=== PATIENT | male | born 1990 | race Asian ===

== ENCOUNTER 2025-06-18 14:38 | Emergency (ER) | payer MEDICAID ==
[~2025-06-18] VITALS: Ht 167.6 cm; Wt 85.1 kg
[2025-06-18 14:46] VITALS: TEMP 97.5
--- NOTE | 2025-06-18 14:50 | Physician Documentation ---
History of Present Illness Stated Complaint: DIZZINESS OK to notify your PCP?: Yes Source: patient Mode of Arrival: POV Exam Limitations: no limitations HPI MSE: 34-year-old male that presents to the emergency department for evaluation of high blood pressure taken a couple of days ago dizziness and for medication refill. Patient reports that he is normally hypertensive. Patient reports that he is a methamphetamine user. Patient reports that he has not used methamphetamine today but unsure. Patient does not have any desire to abstain from methamphetamine he is only out of methamphetamine at this time. Patient's vital signs are currently stable. Provider note: This patient comes in complaining of I will let pressure second- degree to be an out in his lisinopril. He says 630 mg p.o. lisinopril daily. He is not complaining of chest pain or shortness of breath. He is also complaining of swelling of the right side of his face just in front in his ear with a extends into his lower jaw. He complains of mild discomfort but nothing significant. He denies pain in his teeth. He denies fevers or chills. He denies redness or warmth with the outer skin. Medication Reconciliation Allergies: Coded Allergies: No Known Allergies (Unverified , 06/18/25) Physical Exam General Appearance: alert, WD/WN, no apparent distress EENT The patient has obvious edema/fullness of the right side of his face. To palp ation of the preauricular area there is a well-circumscribed mass that extends to the submandibular area. No change in overlying skin color or temperature. No significant tenderness to palpation of the area. No obvious fluctuance or deep fluid collection. No obvious periapical abscess to inspection of the teeth with the right upper jaw. Neck: normal inspection, full range of motion, supple, non-tender Respiratory: lungs clear, normal breath sounds, no respiratory distress Cardiovascular No rubs, gallops or murmurs. No peripheral edema, cyanosis or clubbing of the extremities. Skin: normal color, warm/dry Lymphatic: no adenopathy Progress Results/Orders Reviewed/noted all lab results: Yes Medical Decision Making Additional information obtaine: N/A Findings Regarding the patient's blood pressure is not significantly elevated and he is not symptomatic. It isn't require attention here in the ER. I am going to prescribe that has a lisinopril with the instructions take it daily as directed. Regarding the swelling of the rest of the face it appears to be consistent with a parotitis. I will place him on a course of Augmentin with the instructions to apply warm compresses to the area and he has been suck on sour candies. Follow up with the primary care physician for recheck in the next one or two days and return to the ER for any worsening or concerning symptoms. Differential Dx:Considerations: Other (Hypertension. Medication refill. Facial edema. Parotitis. Periapical abscess.) Additional Comments Hypertension. Methamphetamine abuse. Facial edema. Facial cellulitis. Areas syphilis. Parotitis. Salivary stone. Departure Disposition: HOME / SELF CARE / HOMELESS Impression: Primary Impression: Hypertension Additional Impression: Parotitis Condition: Stable Discharge Instructions: Hypertension, Adult, Parotitis Additional Instructions: Regarding the swelling of the right side of your face I prescribed some antibiotics you can take in his suck on sour candies him in his described. Apply warm compresses and ibuprofen for pain. We are going to your high blood pressure take lisinopril as directed. Follow up with the primary care physician for recheck in the next one or two days and return to the ER for any worsening or concerning symptoms. Referrals: NO PRIMARY CARE PROVIDER (PCP) Prescriptions Lisinopril* (Lisinopril*) 40 Mg Tablet 1 TAB PO DAILY for 30 Days, #30 TAB 3 Refills Prov: BOB BARRIOS 06/18/25 Amox Tr/Potassium Clavulanate (Augmentin 875-125 Tablet) 1 Each Tablet 1 TAB PO Q12H for 10 Days, #20 TAB Prov: BOB BARRIOS 06/18/25 Signature Scribe Signature: No scribe Attestation: The note accurately reflects work and decisions made by me.Bob WHEATLEY 06/18/25 16:20 CARMEN ESCOBAR Jun 18, 2025 14:50 BOB BARRIOS Jun 18, 2025 16:16
--- NOTE | 2025-06-18 15:20 | ELECTROCARDIOGRAPH REPORT ---
[facility], [place] Test Date: 2025-06-18 Test Time: 15:19:26 Pat Name: MAR POSADAS Department: [facility]- Patient ID: [facility]-[id number] Room: Gender: M [employer]: : [id number] Requested By: CARMEN ESCOBAR Order Number: [id number] Reading MD: Dr. WILL Armenta Measurements Intervals [place] Rate: 106 P: 69 MD: 168 QRS: 51 QRSD: 99 T: 99 QT: 335 QTc: 445 Interpretive Statements Sinus tachycardia Anteroseptal infarct, old Nonspecific T abnormalities, lateral leads Electronically Signed On 06-20-2025 11:47:[address] WILL Armenta Please click the below link to view image of tracing.
[2025-06-18 15:32] LABS: MEAN PLATELET VOLUME 6.9 FL (7.4-10.4); RED CELL DISTRIBUTION WIDTH 13.7 % (11.5-14.5)
[2025-06-18 15:44] LABS: CREATININE 1.27 MG/DL (0.60-1.10); TOTAL CARBON DIOXIDE 31.6 MMOL/L (24-32); eCRCL 73 ML/MIN; eGFR 64 ML/MIN
[2025-06-18] MEDS ORDERED: LISI40TA20 PO (16:19)
[2025-06-18] MEDS ORDERED: AMOX-117 PO (16:19)
[2025-06-18 16:58] VITALS: BP 148/102; PULSE 100; RESP 20; O2SAT 97
== END 2025-06-18 17:00 | disposition home or self-care (01) ==
LOC: ER 14:40
DX: I10 Essential (primary) hypertension (principal); K11.20 Sialoadenitis, unspecified; R42 Dizziness and giddiness
CPT/HCPCS: 36415; 80053; 85025; 93005; 99284

== ENCOUNTER 2025-06-23 03:50 | Emergency (ER) | payer MEDICAID ==
[~2025-06-23] VITALS: Ht 167.6 cm; Wt 186.8 kg
[~2025-06-23 03:50] MED LIST: AMOX-117 PO; LISI40TA20 PO
[2025-06-23 03:59] VITALS: TEMP 98
--- NOTE | 2025-06-23 04:09 | Physician Documentation ---
History of Present Illness ~ Chief Complaint: Medical Clearance Stated Complaint: MEDICAL CLEARANCE FOR DETOX Time Seen by MD: 04:04 Primary Medical Doctor: Juliet Mcmahan [facility] Patient presents to the emergency room for medical clearance for detox. He admitted taking methamphetamine prior to arrival. He was seen here five days ago and was prescribed antihypertensives as well as antibiotics but he failed to pick those up. He states he continues to have some discomfort in his mouth similar to previous. Tetanus within 5 years?: No Medication Reconciliation Allergies: Coded Allergies: No Known Allergies (Unverified , 06/18/25) Scheduled Amox Tr/Potassium Clavulanate (Augmentin 875-125 Tablet), 1 TAB PO Q12H Lisinopril* (Lisinopril*), 1 TAB PO DAILY Review of Systems ROS All review of systems negative except as per HPI Physical Exam Vital Signs: Temperature: 98.0, Heart Rate: 130, Respiratory Rate: 18, BP: 199/124, Pulse Oximetry: 100, Weight: 186.800 Physical Exam General: Patient is awake, alert, oriented x4 in no acute distress Head: Normocephalic and atraumatic. Eyes: Conjunctival normal. EOMI. PERRL. ENT: Mucous membranes moist. Neck: Supple, trachea is midline. Chest: Clear to auscultation bilaterally without rales, rhonchi, or wheezes. There is no accessory muscle use or retractions. Cardiac: RRR without murmurs, gallops, or rubs. Neuro: Cranial nerves II-XII grossly intact. No focal neuro deficits. Patient ambulating without difficulty. Progress Results/Orders Results/Orders Vital Signs 06/23/25 03:59 Temp 98.0 Pulse 130 Resp 18 B/P (MAP) 199/124 Pulse Ox 100 Medical Decision Making Additional information obtaine: old records Findings Patient presents to the emergency room seeking medical clearance. Unfortunately, patient did meth prior to coming he has unstable vitals with a very high blood pressure and heart rate. I do not feel he requires emergent labs as he is admittedly done meth prior to arrival. I have instructed him to not do meth. He is to come in when that has heart rate is slower in his blood pressure is lower. That has instructed him that he needs to fill his antibiotics in his antihypertensive medication when she admittedly states he did not. He acknowledges the need to do so. Differential Dx:Considerations: Include: Intoxication-Alcohol, Intoxication- Other drug, Personality disorder, Substance abuse disorder, Acute delirium, Closed head injury, Cervical spine injury, Skull fracture, Fracture(s), Abrasion, Contusion, Foreign body, Hematoma, Laceration, Alcohol withdrawl syndrom, Encephalopathy, Hepatitis, Medically stable, Other Departure Disposition: 01 HOME / SELF CARE / HOMELESS Impression: Primary Impression: General medical exam Additional Impression: Noncompliance with medications Condition: Fair Discharge Instructions: Medical Screening Exam Additional Instructions: Take your blood pressure and antibiotic as prescribed. Returned to the emergency room when you he had not just done meth and your vitals will likely be greatly improved in we can clear you for detox. Referrals: NO PRIMARY CARE PROVIDER (PCP) Signature Scribe Signature: No scribe Attestation: The note accurately reflects work and decisions made by me.Maritza Montoya MD 06/23/25 04:09 MARITZA MONTOYA MD Jun 23, 2025 04:09
[2025-06-23 04:23] VITALS: BP 183/120; PULSE 130; RESP 14; O2SAT 97
== END 2025-06-23 04:24 | disposition home or self-care (01) ==
LOC: ER 03:51
DX: Z00.00 Encounter for general adult medical examination without abnormal findings (principal); Z79.899 Other long term (current) drug therapy; Z91.148 Patient's other noncompliance with medication regimen for other reason
CPT/HCPCS: 99282